=== PATIENT | male | born 1995 | race Caucasian/White ===

== ENCOUNTER 2017-11-22 10:47 | Emergency (ER) | payer OTHER ==
[2017-11-22] MEDS: PERCOCET 5MG/325MG TAB PO (12:36)
[2017-11-22] MEDS: LIDOCAINE 2% MDV 20 ML VIAL SC (12:37)
== END 2017-11-22 13:28 | disposition home or self-care (01) ==
LOC: M ED 10:47
DX: S02.2XXA Fracture of nasal bones, initial encounter for closed fracture (principal); S00.83XA Contusion of other part of head, initial encounter; S01.511A Laceration without foreign body of lip, initial encounter; W01.0XXA Fall on same level from slipping, tripping and stumbling without subsequent striking against object, initial encounter; Y93.01 Activity, walking, marching and hiking; Y92.139 Unspecified place military base as the place of occurrence of the external cause; Y99.1 Military activity; J45.909 Unspecified asthma, uncomplicated; Z87.891 Personal history of nicotine dependence
CPT/HCPCS: 70486